=== PATIENT | male | born 1940 | race African-American/Black ===

== ENCOUNTER 2016-07-07 18:08 | Emergency (ER) | payer OTHER ==
[2016-07-07] MEDS ORDERED: ASPIRIN 81 MG TABLET, CHEWABLE PO ONE (18:43)
[2016-07-07] MEDS ORDERED: MAG HYDROX/AL HYDROX/SIMETH SUSP 30 ML UDCUP PO ONE ×2 (18:47→18:49)
[2016-07-07] MEDS ORDERED: LIDOCAINE 2% VISCOUS SOLN 20 ML UDCUP PO ONE ×2 (18:47→18:49)
[2016-07-07] MEDS ORDERED: METOCLOPRAMIDE HCL ORAL SOLN 10 MG/10 ML UDCUP PO ONE ×2 (18:47→18:49)
--- NOTE | 2016-07-07 18:53 | ER Document Report ---
ED Medical Screen (RME) - General Stated Complaint: CHEST PAIN Mode of Arrival: Ambulatory Information source: Patient Notes: 76 y/o M presents to ED c/o intermittently persistent epigastric area pain over the last 2 days. Reports pain as sharp/stabbing, non-provoked, and radiates bilaterally around lower chest/upper abdomen. Reports associated nausea when pain is at its worse. Denies blood in emesis or stool. I have greeted and performed a rapid initial assessment of this patient. A comprehensive ED assessment and evaluation of the patient, analysis of test results and completion of the medical decision making process will be conducted by additional ED providers. TRAVEL OUTSIDE OF THE [place] IN LAST 30 DAYS: No - Related Data Allergies/Adverse Reactions: No Known Allergies Allergy (Verified 07/07/16 18:45) Past Medical History - Social History Chew tobacco use (# tins/day): No Frequency of alcohol use: None Drug Abuse: None Renal/ Medical History: Denies: Hx Peritoneal Dialysis Past Surgical History: Reports: Hx Oral Surgery, Hx Orthopedic Surgery - left knee Physical Exam - General General appearance: Alert In distress: Mild - Respiratory Respiratory status: No respiratory distress - Cardiovascular Rhythm: Regular Pulses: Normal: Radial Normal capillary refill: Yes - Abdominal Tenderness: Tender - Tenderness to palpation to mid upper abdomen/epigastric area.
[2016-07-07 19:24] LABS: ABSOLUTE BASOPHILS # (AUTO) 0.1 10^3/uL (0.0-0.2); ABSOLUTE EOSINOPHILS # (AUTO) 0.3 10^3/uL (0.0-0.6); ABSOLUTE LYMPHOCYTES (AUTO) 2.5 10^3/uL (0.5-4.7); ABSOLUTE NEUT (AUTO) 10.3 10^3/uL (1.7-8.2); BASOPHILS % (AUTO) 0.6 % (0-2); EOSINOPHILS % (AUTO) 2.3 % (0-6); HEMATOCRIT 40.4 % (37.9-51.0); HEMOGLOBIN 13.4 g/dL (13.5-17.0); HGB HCT DIFFERENCE -0.2; LYMPHOCYTES % (AUTO) 17.8 % (13-45); MEAN CORPUSCULAR HEMOGLOBIN 26.9 pg (27.0-33.4); MEAN CORPUSCULAR HGB CONC 33.1 g/dL (32.0-36.0); MEAN CORPUSCULAR VOLUME 81 fl (80-97); MONOCYTES % (AUTO) 6.7 % (3-13); RED BLOOD COUNT 4.97 10^6/uL (4.35-5.55); RED CELL DISTRIBUTION WIDTH 14.2 % (11.5-14.0); SEGMENTED NEUTROPHILS % (AUTO) 72.6 % (42-78); WHITE BLOOD COUNT 14.2 10^3/uL (4.0-10.5)
[2016-07-07 19:45] LABS: ALANINE AMINOTRANSFERASE 32 U/L (21-72); ALBUMIN 3.3 g/dL (3.5-5.0); ALKALINE PHOSPHATASE 95 U/L (38-126); ANION GAP 14 (5-19); ASPARTATE AMINO TRANSFERASE 22 U/L (17-59); BILIRUBIN,TOTAL 0.5 mg/dL (0.2-1.3); BLOOD UREA NITROGEN 25 mg/dL (7-20); CALCIUM 10.4 mg/dL (8.4-10.2); CARBON DIOXIDE 29 mmol/L (22-30); CHLORIDE 94 mmol/L (98-107); CREATINE KINASE 45 U/L (55-170); CREATININE RESULT 1.23 mg/dL (0.52-1.25); GLUCOSE 109 mg/dL (75-110); LIPASE 104.7 U/L (23-300); POTASSIUM 5.2 mmol/L (3.6-5.0); SODIUM 136.9 mmol/L (137-145); TOTAL PROTEIN 7.1 g/dL (6.3-8.2)
[2016-07-07 19:58] LABS: CREATINE KINASE MB 0.81 ng/mL (<4.55)
[2016-07-07 20:05] LABS: TROPONIN I 0.193 ng/mL
[2016-07-07] MEDS ORDERED: NITROGLYCERIN 0.4 MG/TAB 25 TAB/BOTTLE SL PRN (20:24)
[2016-07-07] MEDS ORDERED: NORMAL SALINE 1000 ML 1,000 ML IV ONE ×2 (20:25→22:58)
[2016-07-07 20:28] LABS: PROTHROMBIN TIME 14.5 SEC (11.4-15.4)
[2016-07-07 20:29] LABS: PARTIAL THROMBOPLASTIN TIME 37.2 SEC (23.5-35.8)
--- NOTE | 2016-07-07 20:31 | ER Document Report ---
ED General <RAÚL JOYNER - Last Filed: 07/08/16 05:29> - General Time seen by provider: 20:15 Mode of Arrival: Ambulatory Information source: Patient TRAVEL OUTSIDE OF THE [place] IN LAST 30 DAYS: No <NGHIA GILES - Last Filed: 07/18/16 15:10> - General Chief Complaint: Chest Pain > 30 Stated Complaint: CHEST PAIN Notes: 76-year-old male reports 2 weeks of intermittent indigestion type discomfort in the epigastric region and lower chest which is not associated with eating or exertion. He reports he [facility] physician [facility] for to was told to take Tums he says at first it seemed to help more recently he is having symptoms about every 2 hours and Tums is no longer helping. He reports worse pain he's had with this has been earlier today and was associated with diaphoresis and shortness of breath. He reports he had some nausea with it 3 days ago but none today. Patient reports a long history of reflux going back many years but says he's never had discomfort like this before a few weeks ago. He denies hematemesis, hematochezia, melena, swelling to extremities, or syncope. He does report he felt dizzy with walking in the emergency department tonight but does not feel that lying down on the stretcher. He reports no prior cardiac workup. He reports no alcohol use many years but does smoke is not aware of any cardiac history and family. He has not had a sensation of fast slow or irregular heartbeat. He reports no relief in the emergency department with GI cocktail. Physical Exam: General: Alert, appears well. HEENT: Normocephalic. Atraumatic. PERRLA. Extraocular movements intact. Oropharynx clear. Neck: Supple. Non-tender. Respiratory: No respiratory distress. Clear and equal breath sounds bilaterally. Cardiovascular: Regular rate and rhythm. Abdominal: Normal Inspection. Trace epigastric discomfort nondistended no guarding rebound rigidity urostomy site appears healthy no Perdomo sign Back: Non-tender. No deformity or step off. Extremities: Moves all four extremities. Upper extremities: Normal inspection. Non-tender. Normal color. Normal ROM. Normal temperature. Lower extremities: Chronic. Deformity of the right great toenail. Non-tender. No edema. Normal color. Normal ROM. Normal temperature. 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 Normal Mood. Skin: Warm. Dry. Normal color. (NGHIA GILES) - Related Data Allergies/Adverse Reactions: No Known Allergies Allergy (Verified 07/07/16 18:45) Past Medical History - General Information source: Patient - Social History Smoking Status: Current Every Day Smoker Chew tobacco use (# tins/day): No Frequency of alcohol use: None Drug Abuse: None Family History: Other - Mother with dementia patient is not aware of any early onset coronary disease Patient has suicidal ideation: No Patient has homicidal ideation: No Renal/ Medical History: Denies: Hx Peritoneal Dialysis Past Surgical History: Reports: Hx Oral Surgery, Hx Orthopedic Surgery - left knee, Hx Urostomy - Secondary to bladder cancer <NGHIA GILES - Last Filed: 07/18/16 15:10> Review of Systems - Review of Systems Constitutional: denies: Chills, Fever EENT: denies: Ear pain, Throat pain Cardiovascular: See HPI Respiratory: See HPI. denies: Cough Gastrointestinal: See HPI. denies: Diarrhea Genitourinary: See HPI. denies: Burning, Hematuria Musculoskeletal: denies: Back pain, Leg swelling, Ankle swelling Hematologic/Lymphatic: denies: Swollen glands Neurological/Psychological: denies: Weakness, Numbness <NGHIA GILES - Last Filed: 07/18/16 15:10> Course - Laboratory Result Diagrams: 07/07/16 19:05 07/07/16 19:05 <RAÚL JOYNER - Last Filed: 07/08/16 05:29> - Laboratory Result Diagrams: 07/07/16 19:05 07/07/16 19:05 - Diagnostic Test Radiology reviewed: Image reviewed, Reports reviewed <NGHIA GILES - Last Filed: 07/18/16 15:10> - Re-evaluation Re-evalutation: 07/08/16 05:28 I did reevaluate the patient. He is feeling improved. He continues to deny any pain at this time. I did speak with Dr. Lashay Shannon at the [facility] who agrees to accept the patient. We will continue monitor the patient until he is transferred. 07/08/16 05:29 (RAÚL JOYNER) 07/08/16 04:30 Patient has had waxing and waning epigastric discomfort during his stay in emergency department. Multiple re-evaluations abdomen consistently show epigastric tenderness to palpation but no right upper quadrant tenderness no abdominal distention no guarding no rebound or rigidity. Patient's had 3 positive troponins have been flat and this seems to be most consistent with a type II non-STEMI reflecting minimal enzyme leak. Patient has not had any description of chest discomfort shortness of breath or diaphoresis worrisome for acute coronary syndrome. My suspicion is that the patient has gastritis or peptic ulcer disease responsible for his epigastric discomfort this producing a tachycardia producing his enzyme leak. He is full dose aspirin but have not administered another anticoagulation because concerned this may p septate gastric bleeding. This facility currently has no gastroenterology coverage or interventional cardiology or believe the most appropriate workup for him at this point is cardiology clearance possibly including catheterization followed by GI evaluation for epigastric pain. I discussed all of this with the patient and as that workup exceeds the capabilities of this facility currently recommended transfer to any of the number of different facilities but the patient is adamant that he will only go to the [facility] where his previous care has been. We have been attempting for approximately 3 hours to facilitate that but have yet to hear back from physician there. 07/18/16 15:09 (NGHIA GILES) - Vital Signs Vital signs: Temp Pulse Resp BP Pulse Ox 98.7 F 91 18 124/99 H 96 07/08/16 14:00 07/08/16 14:00 07/08/16 14:00 07/08/16 14:00 07/08/16 14:00 - Laboratory Laboratory results interpreted by me: 07/07/16 07/07/16 07/07/16 19:05 19:05 19:05 WBC 14.2 H Hgb 13.4 L MCH 26.9 L RDW 14.2 H Plt Count 465 H Absolute Neutrophils 10.3 H APTT 37.2 H D-Dimer Sodium 136.9 L Potassium 5.2 H Chloride 94 L BUN 25 H Est GFR (Non-Af Amer) 58 L Calcium 10.4 H Creatine Kinase 45 L Albumin 3.3 L Ur Leukocyte Esterase 07/07/16 07/08/16 19:05 02:57 WBC Hgb MCH RDW Plt Count Absolute Neutrophils APTT D-Dimer 3.22 H Sodium Potassium Chloride BUN Est GFR (Non-Af Amer) Calcium Creatine Kinase Albumin Ur Leukocyte Esterase SMALL H - EKG Interpretation by Me Additional EKG results interpreted by me: 07/07/16 20:30 EKG reviewed by myself shows sinus tachycardia 114 with transient tachyarrhythmia consistent with atrial fibrillation minimal nonspecific ST changes 07/08/16 04:29 EKG #2 reviewed by myself sinus tachycardia 106 no acute changes Repeat EKG #3 shows sinus tachycardia [address] changes ( NGHIA GILES) Discharge <RAÚL JOYNER - Last Filed: 07/08/16 05:29> <NGHIA GILES - Last Filed: 07/18/16 15:10> - Discharge Clinical Impression: Non-ST elevation (NSTEMI) myocardial infarction Condition: Stable [facility]position: [facility]
[2016-07-07] MEDS ORDERED: MORPHINE SULFATE 10 MG/ML INJ IV ONE (23:20)
[2016-07-07] MEDS ORDERED: PROMETHAZINE HCL INJ 25 MG/1 ML VIAL IV ONE (23:27)
[2016-07-07] MEDS ORDERED: PROMETHAZINE HCL INJ 25 MG/1 ML VIAL ONE (23:36)
[2016-07-08 03:12] LABS: AMORPHOUS SEDIMENT,URINE 1+ /HPF; APPEARANCE,URINE CLOUDY; BILIRUBIN,URINE NEGATIVE (NEGATIVE); GLUCOSE, URINE NEGATIVE (NEGATIVE); KETONES,URINE NEGATIVE (NEGATIVE); LEUKOCYTE ESTERASE,URINE SMALL (NEGATIVE); NITRITE,URINE NEGATIVE (NEGATIVE); PROTEIN,URINE NEGATIVE (NEGATIVE); URINE SPECIFIC GRAVITY 1.035; UROBILINOGEN,URINE NEGATIVE mg/dL (<2.0)
[2016-07-08] MEDS ORDERED: DEXTROSE 5%-1/2 NORMAL SALINE 1,000 ML IV ONE (03:13)
[2016-07-08] MEDS ORDERED: PANTOPRAZOLE SODIUM 40 MG VIAL IV ONE (04:50)
--- NOTE | 2016-07-08 04:54 | ER Document Report ---
Doctor's Note Notes: 07/08/16 04:53 Patient accepted to the [facility] for transfer by Dr. Lashay Shannon. We are awaiting bed placement.
[2016-07-08 14:06] VITALS: BP 124/99
--- NOTE | 2016-07-08 18:06 | EKG REPORT ---
SEVERITY:- ABNORMAL ECG - SINUS TACHYCARDIA LEFT ANTERIOR FASCICULAR BLOCK PROBABLE ANTEROSEPTAL INFARCT, OLD : Confirmed by: Kateryna Quinn MD 08-Jul-2016 18:05:01
--- NOTE | 2016-07-08 18:06 | EKG REPORT ---
SEVERITY:- ABNORMAL ECG - SINUS TACHYCARDIA WITH IRREGULAR RATE 100-144 LEFT ANTERIOR FASCICULAR BLOCK PROBABLE ANTEROSEPTAL INFARCT, OLD BORDERLINE PROLONGED QT INTERVAL : Confirmed by: Kateryna Quinn MD 08-Jul-2016 18:05:11
--- NOTE | 2016-07-08 18:06 | EKG REPORT ---
SEVERITY:- ABNORMAL ECG - SINUS TACHYCARDIA MULTIFORM VENTRICULAR PREMATURE COMPLEXES LEFT ANTERIOR FASCICULAR BLOCK ANTERIOR INFARCT, AGE INDETERMINATE CONSIDER POSTERIOR INFARCT BORDERLINE PROLONGED QT INTERVAL : Confirmed by: Kateryna Quinn MD 08-Jul-2016 18:04:48
== END 2016-07-08 14:05 ==
LOC: ER 18:08
DX: I21.4 Non-ST elevation (NSTEMI) myocardial infarction (principal); R07.9 Chest pain, unspecified; R10.13 Epigastric pain; R11.0 Nausea; R00.0 Tachycardia, unspecified; F17.200 Nicotine dependence, unspecified, uncomplicated
CPT/HCPCS: 93005; 99285; 96361; 96374; 96375; 36415; 82553; 82550; 83690; 83735; 85025; 85610; 85730; 82272; 80053; 81001; 84484; 85379; 83880; 71020; 71275; 74177; 93010; J3490; J2270; S0164; J7030; J2550